=== PATIENT | male | born 1960 | race Caucasian/White ===

== ENCOUNTER 2021-07-28 13:31 | Emergency (ER) | payer OTHER ==
[2021-07-28] MEDS ORDERED: Sodium Chloride 0.9% 10 ML Syringe FLUSH PRN (13:33)
[2021-07-28] MEDS ORDERED: Aspirin 81 MG Tab.Chew PO ONE (13:33)
--- NOTE | 2021-07-28 13:50 | EDM.PDOC ---
ED HPI GENERAL MEDICAL PROBLEM - General Chief Complaint: Chest Pain Stated Complaint: CHEST PAIN Time Seen by Provider: 07/28/21 13:40 Source of Information: Reports: Patient. Denies: Old Records History Limitations: Reports: Other (no old records) - History of Present Illness INITIAL COMMENTS - FREE TEXT/NARRATIVE: 61 yo male here with anterior chest pressure. Sx's were present first early this AM and went away only to return after he ate lunch. No pHx of CAD, denies nausea, diaphoresis or SOB. Hasn't seen a doctor in yrs, but does check his BP regularly. Is not aware of what his cholesterol is. No FHx of CAD. Onset: Today, Sudden Onset Date: 07/28/21 Onset Time: 08:30 Duration: Intermittent Location: Reports: Chest Quality: Reports: Pressure Severity: Moderate Improves with: Reports: None Worsens with: Reports: None Context: Reports: Other (See HPI) Associated Symptoms: Reports: Chest Pain. 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: Other (see below) (none) Chest Pain Score (Numeric/FACES): 6 - Related Data Allergies Allergy/AdvReac Type Severity Reaction Status Date / Time No Known Allergies Allergy Verified 07/28/21 13:41 Home Meds: Home Meds Famotidine 20 mg PO DAILY #30 tab 07/28/21 [Rx] Metoprolol Succinate 100 mg PO BEDTIME #30 tab.er.24h 07/28/21 [Rx] metFORMIN HCl [Metformin HCl ER] 1,000 mg PO BID #120 tab.er.24h 07/28/21 [Rx] Social & Family History - Tobacco Use Tobacco Use Status *Q: Never Tobacco User - Caffeine Use Caffeine Use: Reports: Coffee - Alcohol Use Days Per Week of Alcohol Use: 7 Number of Drinks Per Day: 2 Total Drinks Per Week: 14 - Recreational Drug Use Recreational Drug Use: No ED ROS GENERAL - Review of Systems Review Of Systems: See Below Constitutional: Reports: No Symptoms HEENT: Reports: No Symptoms Respiratory: Reports: No Symptoms Cardiovascular: Reports: Chest Pain Endocrine: Reports: No Symptoms GI/Abdominal: Reports: No Symptoms : Reports: No Symptoms Musculoskeletal: Reports: No Symptoms Skin: Reports: No Symptoms Neurological: Reports: No Symptoms Psychiatric: Reports: No Symptoms ED EXAM, GENERAL - Physical Exam Exam: See Below Exam Limited By: No Limitations General Appearance: Alert, WD/WN, No Apparent Distress, Obese Eye Exam: Bilateral Eye: PERRL Ears: Normal External Exam, Normal Canal, Hearing Grossly Normal, Normal TMs Ear Exam: Bilateral Ear: Auricle Normal, Canal Normal, TM normal Nose: Normal Inspection, No Blood Throat/Mouth: Normal Inspection, Normal Lips, Normal Oropharynx, Normal Voice, No Airway Compromise Head: Atraumatic, Normocephalic Neck: Normal Inspection Respiratory/Chest: No Respiratory Distress, Lungs Clear, Normal Breath Sounds, No Accessory Muscle Use, Chest Non-Tender Cardiovascular: Regular Rate, Rhythm, No Edema. No: Tachycardia GI/Abdominal: Normal Bowel Sounds, Soft, Non-Tender, No Distention Extremities: Normal Inspection, Normal Range of Motion, Non-Tender, No Pedal Edema Neurological: Alert, Oriented, CN II-XII Intact, Normal Cognition, No Motor/Sensory Deficits Psychiatric: Normal Affect, Normal Mood Skin Exam: Warm, Dry, Intact, Normal Color, No Rash #1 Interpretation EKG Date: 07/28/21 Time: 13:35 Rhythm: NSR Rate (Beats/Min): 82 [place]: Normal P-Wave: Present QRS: Normal ST-T: Normal QT: Normal Comparison: NA - No Prior EKG Course - Vital Signs Last Recorded V/S: Last Vital Signs Temp 36.4 C 07/28/21 13:39 Pulse 62 07/28/21 16:28 Resp 15 07/28/21 16:28 BP 121/63 07/28/21 16:28 Pulse Ox 94 L 07/28/21 16:28 - Orders/Labs/Meds Orders: Active Orders 24 hr Category Date Time Status Cardiac Monitoring [RC] .As Directed Care 07/28/21 13:32 Active Heparin Sodium/D5W [Heparin 25,000 Units in D5W 500 ML] Med 07/28/21 14:30 Active 25,000 units in 500 ml IV TITRATE Nitroglycerin [Nitrostat] Med 07/28/21 13:44 Active 0.4 mg SL Q5M PRN Sodium Chloride 0.9% [Saline Flush] Med 07/28/21 13:33 Active 10 ml FLUSH ASDIRECTED PRN Saline Lock Insert [OM.PC] Routine Oth 07/28/21 13:33 Ordered EKG 12 Lead [EK] Routine Ther 07/28/21 13:32 Ordered Medication Orders Heparin Sodium/Dextrose (Heparin 25,000 Units In D5w 500 Ml) 25,000 units in 500 mls @ 20 mls/hr IV TITRATE HARRISON Last Admin: 07/28/21 14:45 Dose: 1,000 units/hr, 20 mls/hr Documented by: MEDINA Cosigned by: MICHELE Nitroglycerin (Nitroglycerin 0.4 Mg Tab.Sl) 0.4 mg SL Q5M PRN PRN Reason: Chest Pain Last Admin: 07/28/21 14:04 Dose: 0.4 mg Documented by: Admin: 07/28/21 13:55 Dose: 0.4 mg Documented by: MEDINA Sodium Chloride (Sodium Chloride 0.9% 10 Ml Syringe) 10 ml FLUSH ASDIRECTED PRN PRN Reason: Keep Vein Open Last Admin: 07/28/21 13:56 Dose: 10 ml Documented by: MEDINA Labs: Laboratory Tests 07/28/21 07/28/21 07/28/21 Range/Units 14:02 14:02 14:18 WBC 8.6 (4.5-11.0) K/uL RBC 5.05 (4.30-5.90) M/uL Hgb 15.2 H (12.0-15.0) g/dL Hct 44.6 (40.0-54.0) % MCV 88 (80-98) fL MCH 30 (27-31) pg MCHC 34 (32-36) % Plt Count 210 (150-400) K/uL Sodium 138 L (140-148) mmol/L Potassium 3.8 (3.6-5.2) mmol/L Chloride 102 (100-108) mmol/L Carbon Dioxide 26 (21-32) mmol/L Anion Gap 13.8 (5.0-14.0) mmol/L BUN 14 (7-18) mg/dL Creatinine 1.0 (0.8-1.3) mg/dL Est Cr Clr Drug Dosing 84.07 mL/min Estimated GFR (MDRD) > 60 (>60) Glucose 145 H (74-106) mg/dL Calcium 8.7 (8.5-10.1) mg/dL Troponin I < 0.017 (0.000-0.056) ng/mL Urine Color Yellow (YELLOW) Urine Appearance Clear (CLEAR) Urine pH 6.5 (5.0-8.0) Ur Specific [place] 1.025 (1.008-1.030) Urine Protein Negative (NEGATIVE) mg/dL Urine Glucose (UA) Negative (NEGATIVE) mg/dL Urine Ketones Negative (NEGATIVE) mg/dL Urine Occult Blood Small H (NEGATIVE) Urine Nitrite Negative (NEGATIVE) Urine Bilirubin Negative (NEGATIVE) Urine Urobilinogen 0.2 (0.2-1.0) EU/dL Ur Leukocyte Esterase Negative (NEGATIVE) Urine RBC 5-10 H (0-5) Urine WBC 0-5 (0-5) Ur Epithelial Cells Occasional Amorphous Sediment Occasional Urine Bacteria Occasional Urine Mucus Occasional SARS CoV-2 RNA Rapid TRACE 07/28/21 07/28/21 Range/Units 14:53 16:08 WBC (4.5-11.0) K/uL RBC (4.30-5.90) M/uL Hgb (12.0-15.0) g/dL Hct (40.0-54.0) % MCV (80-98) fL MCH (27-31) pg MCHC (32-36) % Plt Count (150-400) K/uL Sodium (140-148) mmol/L Potassium (3.6-5.2) mmol/L Chloride (100-108) mmol/L Carbon Dioxide (21-32) mmol/L Anion Gap (5.0-14.0) mmol/L BUN (7-18) mg/dL Creatinine (0.8-1.3) mg/dL Est Cr Clr Drug Dosing mL/min Estimated GFR (MDRD) (>60) Glucose (74-106) mg/dL Calcium (8.5-10.1) mg/dL Troponin I < 0.017 (0.000-0.056) ng/mL Urine Color (YELLOW) Urine Appearance (CLEAR) Urine pH (5.0-8.0) Ur Specific [place] (1.008-1.030) Urine Protein (NEGATIVE) mg/dL Urine Glucose (UA) (NEGATIVE) mg/dL Urine Ketones (NEGATIVE) mg/dL Urine Occult Blood (NEGATIVE) Urine Nitrite (NEGATIVE) Urine Bilirubin (NEGATIVE) Urine Urobilinogen (0.2-1.0) EU/dL Ur Leukocyte Esterase (NEGATIVE) Urine RBC (0-5) Urine WBC (0-5) Ur Epithelial Cells Amorphous Sediment Urine Bacteria Urine Mucus SARS CoV-2 RNA Rapid TRACE Negative Meds: Medications Generic Name Dose Route Start Last Admin Trade Name Tioq PRN Reason Stop Dose Admin Heparin Sodium/Dextrose 25,000 units in 500 mls @ 20 mls/hr 07/28/21 14:30 07/28/21 14:45 Heparin 25,000 Units In D5w 500 Ml IV 1,000 units/hr TITRATE HARRISON 20 mls/hr Administration 1,000 UNITS/HR Nitroglycerin 0.4 mg 07/28/21 13:44 07/28/21 14:04 Nitroglycerin 0.4 Mg Tab.Sl SL 0.4 mg Q5M PRN Administration Chest Pain Sodium Chloride 10 ml 07/28/21 13:33 07/28/21 13:56 Sodium Chloride 0.9% 10 Ml Syringe FLUSH 10 ml ASDIRECTED PRN Administration Keep Vein Open Discontinued Medications Generic Name Dose Route Start Last Admin Trade Name Tioq PRN Reason Stop Dose Admin Aspirin 324 mg 07/28/21 13:33 07/28/21 13:53 Aspirin 81 Mg Tab.Chew PO 07/28/21 13:34 324 mg ONETIME ONE Administration Heparin Sodium (Porcine) 5,000 units 07/28/21 14:20 07/28/21 14:46 Heparin Sodium 5,000 Units/Ml Vial IVPUSH 07/28/21 14:21 5,000 units ONETIME ONE Administration Metoprolol Tartrate 50 mg 07/28/21 14:19 07/28/21 14:43 Metoprolol Tartrate 50 Mg Tab PO 07/28/21 14:20 50 mg ONETIME ONE Administration Nitroglycerin 1 gm 07/28/21 14:19 07/28/21 14:49 Nitroglycerin 2% Oint 1 Gm Ud Packet TOP 07/28/21 14:20 1 gm ONETIME ONE Administration - Radiology Interpretation Free Text/Narrative:: CXR- - Re-Assessments/Exams Free Text/Narrative Re-Assessment/Exam: 07/28/21 14:18 Chest pain reduced after 1st NTG and gone after the 2nd dose. Departure - Departure Time of Disposition: 17:00 Disposition: Home, Self-Care 01 Condition: Fair Clinical Impression: Elevated blood sugar Chest pain Qualifiers: Chest pain type: unspecified Qualified Code(s): R07.9 - Chest pain, unspecified Instructions: Nonspecific Chest Pain, Adult, [id number], Hyperglycemia, [id number] Referrals: PCP,None [Primary Care Provider] - Forms: ED Department Discharge Additional Instructions: Avoid concentrated sweets or starchy foods like white bread, white rice or anything made with white flour. Take metoprolol every day at bedtime starting today. Take metformin as directed next dose tomorrow morning. Take an enteric coated aspirin 325 mg daily with a meal. Take famotidine 20 mg every evening at bedtime starting tonight. See your doctor [place] for a cholesterol level and to get scheduled for either a stress test or a cardiology referral. Your doctor may also want to get a hemoglobin A1C level on you. Return if worse. Sepsis Event Note (ED) - Evaluation Sepsis Screening Result: No Definite Risk - Focused Exam Vital Signs: Vital Signs Temp Pulse Pulse Resp BP BP Pulse Ox 07/28/21 16:28 62 15 121/63 94 L 07/28/21 14:43 70 126/70 07/28/21 14:09 71 139/68 07/28/21 14:04 128/74 07/28/21 14:03 128/74 07/28/21 13:55 151/73 H 07/28/21 13:54 81 19 151/73 H 96 07/28/21 13:39 36.4 C 79 20 179/87 H 95 - My Orders Last 24 Hours: My Active Orders 07/28/21 13:32 Cardiac Monitoring [RC] .As Directed EKG 12 Lead [EK] Routine 07/28/21 13:33 Sodium Chloride 0.9% [Saline Flush] 10 ml FLUSH ASDIRECTED PRN Saline Lock Insert [OM.PC] Routine 07/28/21 13:44 Nitroglycerin [Nitrostat] 0.4 mg SL Q5M PRN 07/28/21 14:30 Heparin Sodium/D5W [Heparin 25,000 Units in D5W 500 ML] 25,000 units in 500 ml IV TITRATE - Assessment/Plan Last 24 Hours: My Active Orders 07/28/21 13:32 Cardiac Monitoring [RC] .As Directed EKG 12 Lead [EK] Routine 07/28/21 13:33 Sodium Chloride 0.9% [Saline Flush] 10 ml FLUSH ASDIRECTED PRN Saline Lock Insert [OM.PC] Routine 07/28/21 13:44 Nitroglycerin [Nitrostat] 0.4 mg SL Q5M PRN 07/28/21 14:30 Heparin Sodium/D5W [Heparin 25,000 Units in D5W 500 ML] 25,000 units in 500 ml IV TITRATE
[2021-07-28] MEDS: Nitroglycerin 0.4 MG Tab.SL SL PRN ×2 (13:55→14:04)
[2021-07-28] MEDS ORDERED: Nitroglycerin 2% Oint 1 GM UD Packet TOP ONE (14:19)
[2021-07-28] MEDS ORDERED: Metoprolol Tartrate 50 MG Tab PO ONE (14:19)
[2021-07-28] MEDS ORDERED: Heparin Sodium 5,000 Units/ML Vial IVPUSH ONE (14:20)
[2021-07-28] MEDS ORDERED: Heparin Sodium/D5W 25,000 UNITS/500 ML BAG IV SCH (14:30)
--- NOTE | 2021-07-28 15:01 | CRLCR ---
For Patients: As a result of the Century Cures Act, medical imaging exams and procedure reports are released immediately into your electronic medical record. You may view this report before your referring provider. If you have questions, please contact your health care provider. Indication: Chest pain. Technique: AP portable view of the chest. Comparison: None Findings: The heart is normal in size. The lungs are clear. No infiltrate, pleural effusion, or pneumothorax is identified. Impression: No acute cardiopulmonary process Dictated by Pily Mayes MD @ 07/28/2021 3:00:26 PM (Electronically Signed)
[2021-07-28] MEDS ORDERED: Famotidine 20 MG Tab PO ONE (16:50)
[2021-07-28] MEDS ORDERED: metFORMIN 500 MG Tab PO ONE (16:51)
== END 2021-07-28 17:24 | disposition home or self-care (01) ==
LOC: JP.ED 13:31
DX: R07.89 Other chest pain (principal); R73.9 Hyperglycemia, unspecified; Z20.822 Contact with and (suspected) exposure to COVID-19
CPT/HCPCS: 36415; 71045; 80048; 81001; 84484; 85027; 87635; 93005; 96365; 96366; 99285; A9270; J1644; U0002